=== PATIENT | male | born 1945 | race Caucasian/White ===

== ENCOUNTER → 2018-12-03 | Outpatient (CLI) | payer MEDICARE, OTHER ==
[~2018-12-03] MED LIST: ASPI-9 PO; CALC-794 PO; GLUC-113 PO; MELO-195 PO; METH5TAB41 PO; METO-272 PO; MULT-974 PO; PNT40TEC PO; PRED10TA PO; PRIM50TA26 PO; SIMV80TA3 PO; [UNRECOGNIZED DRUG - CODE] SQ
--- NOTE | 2018-12-03 15:34 | Diagnostic Imaging Report ---
PROCEDURE: MRI left upper extremity without contrast. TECHNIQUE: Multiplanar, multisequence [id number] MRI of the left upper extremity was accomplished. INDICATION: Left shoulder pain, weakness, history of rheumatoid arthritis. COMPARISON: None. FINDINGS: No acute fracture or dislocation is seen in the left shoulder. Subcortical cyst-like changes are seen at the anterior humeral head. There are moderate degenerative changes in the left acromioclavicular joint. No significant joint effusion is seen. There is minimal thickening of the subacromial and subdeltoid bursa. There is mild tendinosis of the supraspinatus tendon, with low-grade partial-thickness tearing at the bursal surface. The infraspinatus tendon demonstrates minimal fraying at the undersurface distally. There is a small partial-thickness fissure at the bursal surface of the subscapularis tendon with mild fluid in the overlying subcoracoid bursa. There is no muscular atrophy. The long head of the biceps tendon appears normal in course and signal. The glenoid labrum is suboptimally evaluated in the absence of intra-articular contrast, although there appears to be tearing of the superior labrum which is likely degenerative. No paralabral cyst is seen, although there is a small amount of fluid in the superior subscapularis recess. The acromion has a curved undersurface without significant hooking. The coracoacromial and coracoclavicular ligaments are intact. The soft tissues about the left shoulder are otherwise unremarkable. IMPRESSION: 1. Low-grade partial-thickness tearing in the left rotator cuff with no full-thickness tear seen. No muscular atrophy is seen. 2. Moderate degenerative changes in the left acromioclavicular joint. 3. Minimal fluid in the subcarinal and subdeltoid bursa and subcoracoid bursa, may represent mild bursitis. Dictated by: Dictated on workstation # [id number]
== END ==
LOC: RAD 13:55
PROVIDERS: ATTEND Orthopaedic Surgery
DX: M75.102 Unspecified rotator cuff tear or rupture of left shoulder, not specified as traumatic (principal); M19.012 Primary osteoarthritis, left shoulder; Z87.39 Personal history of other diseases of the musculoskeletal system and connective tissue
CPT/HCPCS: 73221